=== PATIENT | male | born 1975 | race Hispanic/Latino ===

== ENCOUNTER 2019-02-06 19:40 | Emergency (ER) | payer SELFPAY ==
[2019-02-06] MEDS ORDERED: MORPHINE SULFATE 4 MG/1ML SYG ONE ×2 (19:56→21:09)
[2019-02-06] MEDS ORDERED: ONDANSETRON HCL 4 MG/2 ML VIAL ONE (19:56)
[2019-02-06] MEDS ORDERED: SODIUM CHLORIDE 0.9% 1000ML 1,000 ML IV ONE ×2 (19:56→21:04)
[2019-02-06 20:12] LABS: BASOPHILS % (AUTO) 0.3 % (0.0-5.0); EOSINOPHILS % (AUTO) 0.8 % (0.0-8.0); HEMATOCRIT 49.1 % (42-54); LYMPHOCYTES % (AUTO) 12.5 % (21.0-51.0); MEAN CORPUSCULAR HEMOGLOBIN 31.9 pg (27.0-33.0); MEAN CORPUSCULAR HGB CONC 34.2 g/dL (32.0-36.0); MEAN CORPUSCULAR VOLUME 93.2 fL (79-99); MONOCYTES % (AUTO) 4.2 % (3.0-13.0); NEUTROPHILS % (AUTO) 82.2 % (40.0-77.0); PLATELET COUNT (AUTO) 251 K/uL (130-400); RED BLOOD CELL COUNT(AUTO) 5.27 MIL/uL (4.50-6.20); RED CELL DISTRIBUTION WIDTH 13.5 % (11.0-15.5); WHITE BLOOD COUNT (AUTO) 16.5 K/uL (4.8-10.8)
[2019-02-06 20:26] LABS: POTASSIUM 3.6 mmol/L (3.5-5.1)
[2019-02-06 20:30] LABS: ALBUMIN 3.8 g/dL (3.5-5.0); BILIRUBIN,TOTAL 0.5 mg/dL (0.2-1.0); TOTAL PROTEIN, SERUM 7.3 g/dL (6.0-8.3)
[2019-02-06 20:53] LABS: APPEARANCE,URINE Clear (CLEAR); BILIRUBIN,URINE Negative (NEGATIVE); COLOR,URINE Yellow (YELLOW); GLUCOSE, URINE (UA) Negative (NEGATIVE); KETONES,URINE Negative (NEGATIVE); LEUKOCYTE ESTERASE ,URINE Negative (NEGATIVE); NITRATE,URINE Negative (NEGATIVE); OCCULT BLOOD,URINE Negative (NEGATIVE); PH,URINE 5.5 (5.0-8.0); PROTEIN,URINE Negative (NEGATIVE); UROBILINOGEN,URINE 0.2 mg/dL (0.2-1.0)
[2019-02-06] MEDS ORDERED: CEFTRIAXONE SODIUM 1 GM ONE (21:13)
== END 2019-02-06 21:59 | disposition home or self-care (01) ==
LOC: EDH 19:40
DX: K52.9 Noninfective gastroenteritis and colitis, unspecified (principal); R10.84 Generalized abdominal pain
CPT/HCPCS: 36415; 74176; 80053; 81003; 82550; 83690; 84484; 85025; 93005; 96361; 96374; 96375; 96376; 99285; J0696; J2270 ×2; J2405; J7030 ×2

== ENCOUNTER 2019-02-07 01:10 | Inpatient (IN) | payer SELFPAY ==
[~2019-02-07] VITALS: Ht 167.6 cm; Wt 81.3 kg
[2019-02-07] MEDS ORDERED: SODIUM CHLORIDE 0.9% 1000ML 1,000 ML IV ONE (01:48)
[2019-02-07] MEDS ORDERED: ONDANSETRON HCL 4 MG/2 ML VIAL ONE (01:48)
[2019-02-07] MEDS ORDERED: MORPHINE SULFATE 4 MG/1ML SYG ONE (01:48)
[2019-02-07] MEDS: SODIUM CHLORIDE 0.9% 1000ML 1,000 ML IV SCH ×2 (02:52→04:30)
[2019-02-07] MEDS ORDERED: ACETAMINOPHEN 325 MG TAB PO PRN ×2 (03:00)
[2019-02-07] MEDS ORDERED: MORPHINE SULFATE 4 MG/1ML SYG IV PRN (03:00)
[2019-02-07] MEDS ORDERED: MORPHINE SULFATE 2 MG/ML 1ML SYG IVP PRN (03:00)
[2019-02-07] MEDS ORDERED: ONDANSETRON HCL 4 MG/2 ML VIAL IV PRN (03:00)
[2019-02-07 04:30] VITALS: BP 116/72
--- NOTE | 2019-02-07 04:35 | NUR ---
ADMIT PT ADMITTED TO ROOM 312, AAOX3. DENIES ANY ABDOMINAL PAINS AT THIS TIME. ADMISSION CARE DONE. ADMISSION DATA BASE COMPLETED. STARTED IVF OF NS REGULATED AT 100CC/MIN. VERIFIED PLACEMENT OF NGT THEN CONNECTED TO LIS. PLACED PT NPO, INSTRUCTED AND PT VERBALIZES UNDERSTANDING. SCD'S APPLIED TO BLE. ORIENTED TO ROOM AND UNIT. IN FOR MORE CARE AND MANAGEMENT. Addendum: 02/07/19 at 0518 by JAMIE GOMES RN RN Amended: Links added.
[2019-02-07] MEDS: METRONIDAZOLE 500MG/100ML BAG 100 ML IV SCH ×3 (05:33→21:58)
[2019-02-07 06:57] LABS: BASOPHILS % (AUTO) 0.5 % (0.0-5.0); EOSINOPHILS % (AUTO) 0.6 % (0.0-8.0); HEMATOCRIT 44.4 % (42-54); LYMPHOCYTES % (AUTO) 19.8 % (21.0-51.0); MEAN CORPUSCULAR HEMOGLOBIN 32.2 pg (27.0-33.0); MEAN CORPUSCULAR HGB CONC 34.2 g/dL (32.0-36.0); MEAN CORPUSCULAR VOLUME 94.2 fL (79-99); MONOCYTES % (AUTO) 6.1 % (3.0-13.0); NUCLEATED RED BLOOD CELLS 0.1 % (0.0-0.19); PLATELET COUNT (AUTO) 212 K/uL (130-400); RED BLOOD CELL COUNT(AUTO) 4.71 MIL/uL (4.50-6.20); RED CELL DISTRIBUTION WIDTH 13.6 % (11.0-15.5); WHITE BLOOD COUNT (AUTO) 10.2 K/uL (4.8-10.8)
[2019-02-07 07:00] VITALS: BP 142/81
--- NOTE | 2019-02-07 07:00 | NUR ---
REPORT REPORT GIVEN TO KISHAN SALTER RN. FOR MORE CARE AND MANAGEMENT.
[2019-02-07 07:09] LABS: ALANINE AMINOTRANSFERASE 136 U/L (12-78); ALBUMIN 3.2 g/dL (3.5-5.0); ASPARTATE AMINOTRANSFERASE 52 U/L (10-37); BILIRUBIN,TOTAL 0.4 mg/dL (0.2-1.0); CARBON DIOXIDE 25 mmol/L (21-32); CHLORIDE 108 mmol/L (101-111); CREATININE 0.7 mg/dL (0.5-1.5); GLOMERULAR FILTR. RATE CALC 131 mL/min (>60); GLUCOSE,RANDOM 119 mg/dL (70-105); POTASSIUM 3.8 mmol/L (3.5-5.1); SODIUM SERUM 143 mmol/L (136-145); TOTAL PROTEIN, SERUM 6.2 g/dL (6.0-8.3); UREA NITROGEN, BLOOD 10 mg/dL (7-18)
[2019-02-07] MEDS: FAMOTIDINE/PF 20 MG/2 ML VIAL IV SCH ×2 (08:13→20:54)
[2019-02-07] MEDS: ENOXAPARIN SODIUM 30 MG/0.3 ML SQ SCH (08:13)
[2019-02-07] MEDS ORDERED: FLU VACC QS2019-20 36MOS UP/PF 60 MCG/0.5 ML ML IM SCH (09:00)
[2019-02-07 11:00] VITALS: BP 121/77
--- NOTE | 2019-02-07 12:39 | NUR ---
DC PLAN PER PATIENT, IS INDEPENDENT, LIVES WITH SPOUSE AND CHILD DAUGHTER, NO PROVIDER, NO MEDICAL EQUIPMENT, AND FEELS SAFE TO RETURN HOME WHEN READY. SELP PAY PACKET GIVEN TO PATIENT AND AT BEDSIDE, VERBALIZED UNDERSTANDING OF INFORMATION. Addendum: 02/07/19 at 1241 by MARLYN CONNOLLY RN Amended: Links added.
[2019-02-07 16:00] VITALS: BP 122/69
[2019-02-07] MEDS: DEXTROSE 5 % AND 0.9 % NACL 1,000 ML IV SCH ×2 (17:15→23:33)
[2019-02-07 20:00] VITALS: BP 114/61
--- NOTE | 2019-02-07 20:54 | NUR ---
MEDS SHIFT ASSESSMENT DONE, PLEASE REFER TO CHART. DUE MEDS ADMINISTERED, TOLERATED WELL. KEPT RESTED AND COMFORTABLE. CALL LIGHT WITHIN REACH. SPOUSE AT BEDSIDE IN ATTENDANCE TO NEEDS AT THIS TIME. Addendum: 02/07/19 at 2249 by JAMIE GOMES RN RN Amended: Links added.
[2019-02-08] VITALS: BP 110/58
--- NOTE | 2019-02-08 01:53 | NUR ---
ROUNDS PT RESTING WELL, FAIRLY ASLEEP WITH RESPIRATIONS EVEN AND UNLABORED. NO NOTED DISTRESS. KEPT UNDISTURBED FOR NOW. WILL MONITOR PT. CALL LIGHT WITHIN REACH. SPOUSE ASLEEP AT BEDSIDE.
[2019-02-08 04:00] VITALS: BP 112/65
[2019-02-08] MEDS: METRONIDAZOLE 500MG/100ML BAG 100 ML IV SCH ×2 (05:09→15:10)
--- NOTE | 2019-02-08 05:48 | NUR ---
ROUNDS PT RESTING WELL, STILL FAIRLY ASLEEP. NO COMPLAINTS OF ABDOMINAL DISCOMFORT THE WHOLE SHIFT. TOLERATING CLEAR LIQUIDS. KEPT COMFORTABLE. FOR MORE CARE.
[2019-02-08 06:01] LABS: BASOPHILS % (AUTO) 0.8 % (0.0-5.0); EOSINOPHILS % (AUTO) 2.6 % (0.0-8.0); HEMATOCRIT 43.4 % (42-54); LYMPHOCYTES % (AUTO) 33.7 % (21.0-51.0); MEAN CORPUSCULAR HEMOGLOBIN 31.6 pg (27.0-33.0); MEAN CORPUSCULAR HGB CONC 33.5 g/dL (32.0-36.0); MEAN CORPUSCULAR VOLUME 94.3 fL (79-99); MONOCYTES % (AUTO) 6.5 % (3.0-13.0); NEUTROPHILS % (AUTO) 56.4 % (40.0-77.0); PLATELET COUNT (AUTO) 215 K/uL (130-400); RED CELL DISTRIBUTION WIDTH 13.6 % (11.0-15.5); WHITE BLOOD COUNT (AUTO) 7.3 K/uL (4.8-10.8)
[2019-02-08 06:21] LABS: ALBUMIN 2.7 g/dL (3.5-5.0); BILIRUBIN,TOTAL 0.5 mg/dL (0.2-1.0); CREATININE 0.8 mg/dL (0.5-1.5); POTASSIUM 3.9 mmol/L (3.5-5.1); TOTAL PROTEIN, SERUM 5.5 g/dL (6.0-8.3)
[2019-02-08 08:00] VITALS: BP 105/68
[2019-02-08] MEDS: ENOXAPARIN SODIUM 30 MG/0.3 ML SQ SCH (08:53)
[2019-02-08] MEDS: FAMOTIDINE/PF 20 MG/2 ML VIAL IV SCH (08:53)
[2019-02-08] MEDS: DEXTROSE 5 % AND 0.9 % NACL 1,000 ML IV SCH (10:19)
[2019-02-08 12:00] VITALS: BP 105/68
[2019-02-08 16:00] VITALS: BP 146/63
== END 2019-02-08 19:35 | disposition home or self-care (01) | DRG 392 ==
LOC: EDH 01:10 → EDHIP 01:11 → 3BH 03:43
PROVIDERS: ADMIT Internal Medicine; ATTEND Internal Medicine
PROC: 3E02340 Introduction of Influenza Vaccine into Muscle, Percutaneous Approach (ICD-10-PCS; principal; 2019-02-07)
PROC: 0D9670Z Drainage of Stomach with Drainage Device, Via Natural or Artificial Opening (ICD-10-PCS; 2019-02-07)
DX: K52.9 Noninfective gastroenteritis and colitis, unspecified (principal); K56.609 Unspecified intestinal obstruction, unspecified as to partial versus complete obstruction; D72.829 Elevated white blood cell count, unspecified; Z23 Encounter for immunization; Z72.0 Tobacco use
CPT/HCPCS: 36415; 74021; 80053; 84145; 85025; G0378; J1650; J2270; J2405; J3490; J7030; J7042; Q2035